=== PATIENT | female | born 1980 | race Caucasian/White ===

== ENCOUNTER 2021-10-07 15:08 | Emergency (ER) | payer MEDICAID, SELFPAY ==
[2021-10-07 15:38] VITALS: BP 153/100; PULSE 88; RESP 18; TEMP 37.1; O2SAT 96
[2021-10-07 15:39] LABS: Bilirubin Negative (Negative); Blood Negative (Negative); Clarity Clear (Clear); Glucose Negative (Negative); Ketones Negative (Negative); Leukocyte Esterase Negative (Negative); Nitrite Negative (Negative); Specific Gravity >= 1.030 (1.005-1.025)
--- NOTE | 2021-10-07 15:51 | W.ED.GENAD ---
Discharge Plan Disposition Patient Disposition: HOME Condition: Stable Discharge Details Clinical Impression: Right flank pain, Dehydration, Ovarian cyst Primary Care Provider: None,None ED Provider: Sachi Fenton Home Meds and New Rx's Prescriptions: Continued acetaminophen [Mapap Extra Strength] 500 MG tablet 500 mg PO PRN PRNRF: 0 sumatriptan succinate [Imitrex STATdose Refill] 4 MG/0.5 ML cartridge 4 mg SQ PRN PRNRF: 0 albuterol sulfate [ProAir HFA] 200 PUFF HFA aerosol inhaler 2 puff Inhalation PRN PRNRF: 0 ibuprofen 600 MG tablet 1 tab PO PRN PRNRF: 0 methimazole 5 mg tablet 5 mg PO DAILY RF: 0 famotidine 20 mg tablet 20 mg PO BID RF: 0 pantoprazole 40 mg tablet,delayed release (DR/EC) 40 mg PO DAILY RF: 0 Discharge Instructions Instructions: Ovarian Cyst (ED), Dehydration (ED), Flank Pain (ED) Additional Instructions: Your lab work and imaging today is reassuring and did not note evidence of acute significant abnormal findings. Your urine sample does not note evidence of infection but does show findings consistent with possibly mild dehydration. Your CT imaging notes findings of an ovarian cyst which is likely incidental and may be unrelated to your pain today. Drink plenty of fluids and get plenty of rest. Alternate tylenol and motrin as needed and directed for pain. An order for an outpatient pelvic ultrasound was placed. Call the radiology department to schedule this test and follow-up with your primary care doctor for the results. Return immediately to the emergency department if you develop any worsening or new concerning symptoms such as fever, abdominal pain, worsening back pain or any other concerns. Discharge Data Discharge Physician: Sachi Fenton Medical Decision Making 41-year-old female presents with right-sided back pain, dysuria, hematuria and frequency over the past 4 days. Denies fever or vomiting. Urinalysis obtained on arrival and notes that it appears concentrated but no evidence of infection or blood. She has no CVA tenderness, rash or lesions. Her abdomen is soft nontender. No focal deficits. Differential diagnosis includes kidney stone, dehydration, electrolyte abnormality. Will place an IV, bolus IV fluids, dose of toradol, screening labs, CT renal colic and reassess. Patient reassessed and she felt much better. Labs reviewed and white blood cell count 12. Remainder of labs unremarkable. CT notes a probable right ovarian cyst but no other acute findings noted. Patient is comfortable going home. She was referred for outpatient pelvic ultrasound. She was advised to drink plenty of fluids, alternate Tylenol and Motrin and follow-up with her PCP for reevaluation. As her urinalysis is negative, do not see indication for antibiotics. Patient is advised to continue to monitor her symptoms and look for development of potential rash. Usual and customary return precautions given prior to discharge. Medical Records Medical records reviewed: Yes I reviewed the patient's medical records. Imaging Data Radiologic Study: Radiologist's impression: CT Abdomen And Pelvis Without Contrast Exam date and time: 10/07/2021 4:05 PM Age: 41 years old Clinical indication: Other: R flank pain, urinary frequency/hesistancy TECHNIQUE: Imaging protocol: Computed tomography of the abdomen and pelvis without contrast. COMPARISON: No relevant prior studies available. FINDINGS: Liver: Normal. No mass. Gallbladder and bile ducts: Status post cholecystectomy. Pancreas: Normal. No ductal dilation. Spleen: Normal. No splenomegaly. Adrenal glands: Normal. No mass. Kidneys and ureters: Normal. No hydronephrosis. Stomach and bowel: Unremarkable. No obstruction. No mucosal thickening. Appendix: No evidence of appendicitis. Intraperitoneal space: Unremarkable. No free air. No significant fluid collection. Vasculature: Unremarkable. No abdominal aortic aneurysm. Lymph nodes: Unremarkable. No enlarged lymph nodes. Urinary bladder: Unremarkable as visualized. Reproductive: IUD in place. Low-density right adnexal lesion 3.4 cm, probable ovarian cyst. Bones/joints: Unremarkable. No acute fracture. Soft tissues: There is a large sized, fat containing periumbilical hernia. IMPRESSION: Probable right ovarian cyst. Lab Data Lab results reviewed: Yes I reviewed the patient's lab results. Labs: Laboratory Tests Range/Units 10/07/21 10/07/21 10/07/21 15:33 16:30 16:30 WBC (4.4-10.8) 10^3/uL 12.46 H RBC (3.93-5.22) 10^6/uL 4.75 Hgb (11.2-15.7) g/dL 13.7 Hct (36.0-46.0) % 42.1 MCV (80-95) fL 88.6 MCH (27.0-33.0) pg 28.8 MCHC (32.0-36.0) % 32.5 RDW (11.7-14.6) % 14.2 Plt Count (130-400) 10^3/uL 340 MPV (8.0-11.0) fL 9.6 Immature Gran % 0.2 Neutrophils % 69.9 Lymphocytes % 22.0 Monocytes % 5.5 Eosinophils % 2.2 Basophils % 0.2 Nucleated RBC % % 0 Absolute Neutrophils (1.2-6.7) 10^3/uL 8.71 H Absolute Lymphocytes (1.2-3.4) 10^3/uL 2.74 Absolute Monocytes (0.1-0.8) 10^3/uL 0.69 Absolute Eosinophils (0.0-0.7) 10^3/uL 0.27 Absolute Basophils (0.0-0.2) 10^3/uL 0.02 Sodium (136-145) mmol/L 139 Potassium (3.5-5.1) mmol/L 3.6 Chloride (98-107) mmol/L 103 Carbon Dioxide (21.0-32.0) mmol/L 26.8 Anion Gap (3-11) mmol/L 9.2 BUN (7-18) mg/dL 14 Creatinine (0.55-1.02) mg/dL 0.7 Estimated GFR/1.73 m2 (mL/min/1.73m2) >= 60.00 Glucose (74-106) mg/dL 81 Calcium (8.5-10.1) mg/dL 8.9 Total Bilirubin (0.2-1.0) mg/dL 0.3 AST (15-37) U/L 31 ALT (14-59) U/L 73 H Alkaline Phosphatase (46-116) U/L 115 Total Protein (6.4-8.2) g/dL 7.9 Albumin (3.4-5.0) g/dL 3.5 Lipase (73-393) U/L 167 Urine Color (Yellow) Yellow Urine Clarity (Clear) Clear Urine pH (5-8) 6.0 Ur Specific [place] (1.005-1.025) >= 1.030 H Urine Protein (Negative) mg/dL Negative Urine Ketones (Negative) mg/dL Negative Urine Blood (Negative) Negative Urine Nitrite (Negative) Negative Urine Bilirubin (Negative) Negative Urine Urobilinogen (Up TO 0.2) EU/dL 1.0 H Ur Leukocyte Esterase (Negative) Negative Urine Glucose (Negative) mg/dL Negative HPI General Mode of arrival: ambulatory. Date/Time Provider Initiated Documentation: 10/07/21 15:42. Limitations to Documentation: no limitations. Information obtained by: patient. HPI Narrative: Pt is a 41yo F with a history of appendectomy and cholecystectomy presents for right flank pain for the past 4 days. She denies any known injury. She states the pain is worse with urination. She states she has been having urinary frequency, hesitancy, urgency, and dysuria. She denies any fever, nausea, vomiting, diarrhea or abdominal pain. Related Data Home Medications Medication Instructions Recorded Confirmed acetaminophen [Mapap Extra 500 mg PO PRN PRN 01/07/13 10/07/21 Strength] sumatriptan succinate [Imitrex 4 mg SQ PRN PRN 01/07/13 10/07/21 STATdose Refill] albuterol sulfate [ProAir HFA] 2 puff INHALATION PRN PRN 12/07/13 10/07/21 ibuprofen 1 tab PO PRN PRN 02/23/15 10/07/21 famotidine 20 mg PO BID 10/07/21 10/07/21 methimazole 5 mg PO DAILY 10/07/21 10/07/21 pantoprazole 40 mg PO DAILY 10/07/21 10/07/21 Allergies Allergy/AdvReac Type Severity Reaction Status Date / Time azithromycin Allergy Intermediate Swelling/Ed Unverified 02/23/15 18:15 meredith Penicillins Allergy Intermediate Skin Rash Unverified 02/23/15 18:15 propoxyphene napsylate Allergy Intermediate Swelling/Ed Unverified 02/23/15 18:15 [From Darvocet-N 100] meredith tramadol Allergy Intermediate Hives Unverified 02/23/15 18:15 clindamycin Allergy Hives Unverified 10/07/21 16:11 codeine [Codeine] Allergy passed Unverified 02/23/15 18:15 out Sulfa (Sulfonamide Allergy Hives Unverified 02/23/15 18:15 Antibiotics) General Stated Complaint: FlankPain WILLIAM: 3 Review of Systems All systems reviewed & are unremarkable except as noted in HPI and below Constitutional Constitutional: Reports as per HPI, Denies chills and Denies fever(s) Eyes Eyes: Denies blurry vision ENT Ears, Nose, Mouth, and Throat: Denies dizziness, Denies sore throat and Denies throat swelling Cardiovascular Cardiovascular: Denies chest pain and Denies dyspnea Respiratory Respiratory: Denies cough and Denies dyspnea Gastrointestinal Gastrointestinal: Denies abdominal pain, Denies diarrhea and Denies vomiting Genitourinary Genitourinary: Denies hematuria, Denies dysuria, Reports urinary hesitancy, Reports urinary urgency and Reports other (urinary frequency) Musculoskeletal Musculoskeletal: Reports back pain and Denies numbness Integumentary/Breasts Skin/Breast: Denies lesions and Denies rash Neurologic Neurologic: Denies dizziness, Denies localized weakness and Denies numbness Allergic/Immunologic Allergic/Immunologic: Denies throat swelling [facility] Active Problem List (Updated 10/07/21 @ 18:59 by Sachi Fenton DO) Right flank pain (Acute) Dehydration (Acute) Ovarian cyst (Acute) Medical History (Updated 10/07/21 @ 18:59 by Sachi Fenton DO) Hyperthyroidism Migraine Surgical History (Updated 10/07/21 @ 16:11 by Sachi Fenton DO) History of appendectomy History of tonsillectomy Hx of cholecystectomy Social History Smoking/Tobacco Use Status: Current every day Tobacco Type: cigarettes Years smoked: 21 Smoking risk assessment performed?: Yes Alcohol Intake: current Alcohol Intake frequency: holidays/special occasions only Drug use: Current Sobriety Details: sober x 7 years Do you feel safe at home: Yes Do you feel safe in your relationship?: Yes Exam Const General: cooperative and no acute distress Nutritional Appearance: obese morbidly obese Orientation: alert, awake and oriented x3 HENMT Head: normal to inspection Face and sinus: normal facial exam Eyes General: appearance normal, both eyes and all related structures EOM: EOM intact bilaterally Neck Neck: normal visual inspection and No submandibular swelling Lymphatic: no lymphadenopathy noted Chest Chest: normal inspection of the chest and no tenderness Resp Effort & Inspection: normal respiratory effort and able to speak in complete sentences Auscultation: clear to auscultation bilaterally Cardio Rate: regular rate Rhythm: regular rhythm GI Inspection: normal to inspection and obesity Palpation: soft, not firm, not rigid and nontender Auscultation: normal bowel sounds Back/Spine/Pelvis Back: no CVA tenderness Skin General skin exam: no rashes or lesions noted Neuro General: patient alert, patient awake and patient oriented x3 Cognition: normal cognition Speech: speech normal Motor: muscle tone normal throughout Sensory Exam: no sensory deficits noted Extrem General: normal to inspection, full ROM, capillary refill normal, no calf tenderness bilaterally and no edema Psych Appearance: grossly normal Mental Status: mental status grossly normal Speech and Movement: speech and movement normal Affect: normal affect Course Vital Signs Vital signs: Vital Signs Temperature 98.7 F 10/07/21 15:38 Pulse 88 10/07/21 15:38 Respiratory Rate 18 10/07/21 15:38 Blood Pressure 153/100 H 10/07/21 15:38 Pulse Oximetry 96 10/07/21 15:38 Temperature 98.7 F 10/07/21 15:38 Temperature Source Temporal Artery Scan 10/07/21 15:38 Pulse 88 10/07/21 15:38 Respiratory Rate 18 10/07/21 15:38 Respiratory Effort Non-Labored 10/07/21 15:44 Blood Pressure 153/100 H 10/07/21 15:38 Blood Pressure Position Sitting 10/07/21 15:38 Pulse Oximetry 96 10/07/21 15:38 Oxygen Delivery Method Nasal Cannula 10/07/21 15:38 Pain Level 5 10/07/21 15:47 Lab/Test Results Lab/Test Results: Laboratory Tests Range/Units 10/07/21 15:33 Urine Color (Yellow) Yellow Urine Clarity (Clear) Clear Urine pH (5-8) 6.0 Ur Specific [place] (1.005-1.025) >= 1.030 H Urine Protein (Negative) mg/dL Negative Urine Ketones (Negative) mg/dL Negative Urine Blood (Negative) Negative Urine Nitrite (Negative) Negative Urine Bilirubin (Negative) Negative Urine Urobilinogen (Up TO 0.2) EU/dL 1.0 H Ur Leukocyte Esterase (Negative) Negative Urine Glucose (Negative) mg/dL Negative POC- Test(urine) Negative PAWSS Have you Been Recently Intoxicated or Drunk Within the Last 30 days?: No Have you Ever Experienced Previous Episodes of Alcohol Withdrawal?: No Have you ever Experienced Withdrawal Seizures?: No Have you ever Experienced Delirium Tremens(DT)s?: No Have you ever undergone Alcohol Rehabilitation Treatment (i.e, inpt ot outpatient treatment programs)?: No Have you ever Experienced Blackouts?: No Have you ever Combined Alcohol with other Downers within the last 90 days?: No Have you ever Combined Alcohol with any other Substance of Abuse during the last 90 days?: No Positive Blood Alcohol level on Presentation? [PCS.BAL]: No Evidence of Increased Autonomic Activity (i.e. HR>120, tremor, sweating, agitation, nausea)?: No Result: 0
--- NOTE | 2021-10-07 16:00 | DI.CT_ITS ---
Exam(s) CT RENAL COLIC WO EXAM: CT RENAL COLIC WO CLINICAL HISTORY: R flank pain, urinary frequency/hesistancy. TECHNIQUE: Imaging Protocol: Axial computed tomography images with coronal and sagittal reformatted images were created and reviewed. COMPARISON: CT ABD PELVIS WITH CONTRAST from 10/16/2010 FINDINGS: ABDOMEN: Lung Bases: Normal where visualized. Liver: Normal density. No measurable mass. Gallbladder and biliary tract: Status post cholecystectomy. No biliary ductal dilatation. Pancreas: Normal density, no abnormal calcifications or inflammatory process. Spleen: Normal. Kidneys: Normal size, contour and axis.No radiodense stones or obstructive uropathy. No masses seen. Adrenal glands: No mass is seen. Lymph nodes: Within normal limits. Abdominal Aorta: Abdominal portion non-dilated. PELVIS: Bladder:Symmetric distention, no gross wall thickening. Bowel: No obstruction or bowel wall thickening. No evidence of appendicitis. Peritoneal cavity: No ascites, collection or mesenteric inflammatory response. No free air. Reproductive organs: There is an IUD in good position. There is a 2.8 x 3.7 cm round low-attenuation lesion in the right adnexa likely representing ovarian cyst. Bones: Within normal limits. Soft Tissues: There are at least 3 fat containing midline supraumbilical anterior abdominal wall brittney ia. IMPRESSION: 1. No evidence of nephrolithiasis or hydronephrosis. 2. 2.8 x 3.7 cm round low-attenuation lesion in the right adnexa likely representing an ovarian cyst. Pelvic ultrasound may be obtained if clinically indicated. 3. At least 3 fat containing midline supraumbilical anterior abdominal wall hernia. RADIATION DOSE DELIVERED: 1,493.98mGy.cm Total DLP DATA REPOSITORY: All CT scans at this facility are submitted to the National Radiology Data Registry (NRDR) Dose Index Registry (DIR) with the [employer] (A[employer]). RADIATION OPTIMIZATION: All CT scans at this facility use at least one of these dose optimization te chniques: automated exposure control; mA and/or kV adjustment per patient size (includes targeted exa ms where dose is matched to clinical indication); or iterative reconstruction.
[2021-10-07] MEDS: Normal Saline 1,000 ML 1000 ML IV (16:33)
[2021-10-07] MEDS: Ketorolac 30 MG/ML VIAL IVP (16:34)
[2021-10-07 16:41] LABS: Abs Immature Grans 0.03 10^3/uL (0.0-0.06); Absolute Basophil Count 0.02 10^3/uL (0.0-0.2); Absolute Eosinophil Count 0.27 10^3/uL (0.0-0.7); Absolute Lymphocyte Count 2.74 10^3/uL (1.2-3.4); Absolute Monocyte Count 0.69 10^3/uL (0.1-0.8); Absolute Neutrophil Count 8.71 10^3/uL (1.2-6.7); Basophils % 0.2; Eosinophils % 2.2; HCT 42.1 % (36.0-46.0); HGB 13.7 g/dL (11.2-15.7); Immature Grans % 0.2; MCH 28.8 pg (27.0-33.0); MCHC 32.5 % (32.0-36.0); MCV 88.6 fL (80-95); MPV 9.6 fL (8.0-11.0); Monocytes % 5.5; Neutrophils % 69.9; Nucleated RBC 0 %; Platelet Count 340 10^3/uL (130-400); RBC 4.75 10^6/uL (3.93-5.22); RDW 14.2 % (11.7-14.6); WBC 12.46 10^3/uL (4.4-10.8)
[2021-10-07 17:07] LABS: ALT 73 U/L (14-59); AST 31 U/L (15-37); Albumin 3.5 g/dL (3.4-5.0); Alkaline Phosphatase 115 U/L (46-116); Anion Gap 9.2 mmol/L (3-11); BUN 14 mg/dL (7-18); Bilirubin, Total 0.3 mg/dL (0.2-1.0); CO2 26.8 mmol/L (21.0-32.0); CREATININE 0.7 mg/dL (0.55-1.02); Calcium 8.9 mg/dL (8.5-10.1); Chloride 103 mmol/L (98-107); Glucose 81 mg/dL (74-106); Lipase 167 U/L (73-393); Potassium 3.6 mmol/L (3.5-5.1); Sodium 139 mmol/L (136-145); Total Protein 7.9 g/dL (6.4-8.2)
--- NOTE | 2021-10-07 17:11 | DI.VRAD_ITS ---
PROCEDURE INFORMATION: Exam: CT Abdomen And Pelvis Without Contrast Exam date and time: 10/07/2021 4:05 PM Age: 41 years old Clinical indication: Other: R flank pain, urinary frequency/hesistancy TECHNIQUE: Imaging protocol: Computed tomography of the abdomen and pelvis without contrast. COMPARISON: No relevant prior studies available. FINDINGS: Liver: Normal. No mass. Gallbladder and bile ducts: Status post cholecystectomy. Pancreas: Normal. No ductal dilation. Spleen: Normal. No splenomegaly. Adrenal glands: Normal. No mass. Kidneys and ureters: Normal. No hydronephrosis. Stomach and bowel: Unremarkable. No obstruction. No mucosal thickening. Appendix: No evidence of appendicitis. Intraperitoneal space: Unremarkable. No free air. No significant fluid collection. Vasculature: Unremarkable. No abdominal aortic aneurysm. Lymph nodes: Unremarkable. No enlarged lymph nodes. Urinary bladder: Unremarkable as visualized. Reproductive: IUD in place. Low-density right adnexal lesion 3.4 cm, probable ovarian cyst. Bones/joints: Unremarkable. No acute fracture. Soft tissues: There is a large sized, fat containing periumbilical hernia. IMPRESSION: Probable right ovarian cyst. Dictated and Authenticated by: Brissa Harp MD. Ordering:HERBERTH Karimi MD
[2021-10-07 18:29] VITALS: BP 134/92; PULSE 80; RESP 18; O2SAT 98
[2021-10-07 19:03] VITALS: BP 134/92; PULSE 80; RESP 18; TEMP 37.1; O2SAT 98
== END 2021-10-07 19:03 | disposition home or self-care (01) ==
PROVIDERS: Emergency Provider Physician Assistant
DX: R10.9 Unspecified abdominal pain (principal); E86.0 Dehydration; N83.201 Unspecified ovarian cyst, right side
CPT/HCPCS: 80053; 81025; 83690; 96361; 96374; 99284; 74176; 81003; 85025; J1885